=== PATIENT | male | born 1955 | race Caucasian/White ===

== ENCOUNTER 2017-11-06 08:09 | Day surgery (SDC) | payer OTHER ==
[2017-11-06] MEDS ORDERED: PROPOFOL 20 ML ONE ×5 (08:54)
[2017-11-06] MEDS ORDERED: LIDOCAINE HCL/PF 2% SDV 5ML VIAL ONE (08:55)
[2017-11-06 08:56] VITALS: BMI 26.4
--- NOTE | 2017-11-06 11:32 | PROC ---
Endoscopy Procedure Endoscopy procedure completed. Please see scanned procedure report.
[2017-11-06 14:38] VITALS: TEMP 97.5
[2017-11-06 14:40] VITALS: PULSE 71
[2017-11-06 15:12] VITALS: BP 146/74
== END 2017-11-06 15:20 | disposition home or self-care (01) ==
LOC: JASU-ENDO 08:09
PROVIDERS: ATTEND Internal Medicine Gastroenterology
PROC: 0DJD8ZZ Inspection of Lower Intestinal Tract, Via Natural or Artificial Opening Endoscopic (ICD-10-PCS; principal; 2017-11-06 11:30)
DX: Z12.11 Encounter for screening for malignant neoplasm of colon (principal); K64.8 Other hemorrhoids